=== PATIENT | male | born 1990 | race Caucasian/White ===

== ENCOUNTER → 2018-06-28 | Outpatient (CLI) | payer BC ==
[2018-06-28 18:34] LABS: BASOPHIL % 0.2 % (0.0-0.2); EOSINOPHIL # 0.2 10^3/uL (0.0-0.2); EOSINOPHIL % 2.4 % (0.0-5.0); LYMPHOCYTES # 2.3 10^3/uL (1.0-4.8); LYMPHOCYTES % 27.8 % (24.0-44.0); MEAN CELL HGB 29.1 pg (26-34); MEAN CELL HGB CONCENTRATION 32.3 g/dL (33-37); MEAN CORP VOLUME 90.1 fL (78-100); MEAN PLATELET VOLUME 9.4 fL (7.8-11.0); MONOCYTES # 1.2 10^3/uL (0.3-0.8); MONOCYTES % 14.2 % (5.0-12.0); NEUTROPHIL # 4.6 10^3/uL (1.8-7.7); NEUTROPHILS % 54.9 % (41.0-85.0); WHITE BLOOD CELL 8.3 10^3/uL (4.5-11.0)
[2018-06-28 19:10] LABS: CALCIUM 9.8 mg/dL (8.4-10.5); CARBON DIOXIDE 25.9 mmol/L (20.0-32)
== END | disposition home or self-care (01) ==
LOC: LAB 18:01
PROVIDERS: ATTEND Pediatrics
DX: R31.9 Hematuria, unspecified (principal); R53.81 Other malaise; R53.83 Other fatigue
CPT/HCPCS: 36415; 80053; 82550; 85025; 85651; 86038; 86060; 86140; 86431

== ENCOUNTER → 2018-06-30 | Outpatient (CLI) | payer OTHER ==
[~2018-06-30] MED LIST: DOXY100C2 PO; METH-3 PO
--- NOTE | 2018-06-30 13:16 | DIREP ---
PROCEDURE:US KIDNEYS-BILAT COMPARISON:None. INDICATIONS:GROSS HEMATURIA TECHNIQUE:Ultrasound examination was performed of the kidneys and bladder. FINDINGS: RIGHT KIDNEY:10.1 x 5.4 x 5.9 cm. Cortex: 1.8 cm LEFT KIDNEY: 11.0 x 5.4 x 5.6 cm. Cortex: 1.6 cm BLADDER (pre-void):7.4 x 8.0 x 6.7 cm. Volume 277.3 ml BLADDER (post-void): 4.2 x 3.4 x 4.3 cm. Volume 31.5 ml MICTURATED VOLUME: 245.8 ml RIGHT KIDNEY: Normal. No hydronephrosis. LEFT KIDNEY: Normal. No hydronephrosis. BLADDER:Normal. OTHER:Negative. CONCLUSION: 1. Normal renal sonography. No definite abnormality is identified to account for patient's hematuria. CT scan of the abdomen and pelvis could be of aid in further evaluation. Dictated by: PANCHITO Physician on 06/30/2018 at 12:12 PM ac
== END | disposition home or self-care (01) ==
LOC: RAD 09:44
PROVIDERS: ATTEND Pediatrics
DX: R31.0 Gross hematuria (principal)
CPT/HCPCS: 76770

== ENCOUNTER 2018-07-02 11:58 | Observation (INO) | payer OTHER ==
[~2018-07-02] VITALS: Ht 185.4 cm; Wt 120.2 kg
[2018-07-02] MEDS ORDERED: NS 1000ML 1,000 ML IV ONE (12:34)
[2018-07-02] MEDS ORDERED: NS 1000ML 1,000 ML ONE (12:36)
[2018-07-02] MEDS ORDERED: ATIVAN ONE (12:37)
[2018-07-02] MEDS ORDERED: EMLA CREAM TP ONE (12:52)
[2018-07-02] MEDS ORDERED: ATIVAN PO ONE (13:00)
--- NOTE | 2018-07-02 13:15 | NUR ---
PATIENT TRANSPORTED TO RADIOLOGY FOR CT VIA WHEELCHAIR. Addendum: 07/02/18 at 1459 by Isaura Bhat RN RN CORRECT TIME 1330
--- NOTE | 2018-07-02 13:20 | NUR ---
ARRIVED TO MED SURG FLOOR AMBULATORY. ADMISSION ASSESSMENT COMPLETED. PATIENT ANXIOUS ABOUT GETTING STUCK WITH NEEDLES FOR IV AND BLOOD DRAW. ADMINISTERED ATIVAN PO. USED LIDOCAINE CREAM. STARTED 20G IV TO LEFT HAND. AT BEDSIDE COMFORTING PATIENT. LAB AT BEDSIDE FOR BLOOD DRAW.
[2018-07-02 13:23] LABS: BILIRUBIN,URINE NEGATIVE (NEGATIVE); UROBILINOGEN,URINE NORMAL (NEGATIVE)
[2018-07-02 13:30] VITALS: BP 134/81
[2018-07-02] MEDS ORDERED: TORADOL IV STA (13:48)
[2018-07-02 14:34] LABS: APPEARANCE,URINE SLIGHTLY HAZY (CLEAR); UA COLOR YELLOW (YELLOW)
[2018-07-02 14:36] LABS: YEAST,URINE RARE
[2018-07-02] MEDS ORDERED: ULTRAM PO STA (16:09)
[2018-07-02] MEDS ORDERED: ULTRAM ONE (16:16)
[2018-07-02 16:40] VITALS: BP 150/75
--- NOTE | 2018-07-02 17:27 | DIREP ---
PROCEDURE:CT ABDOMEN/PELVIS W + W/O CONTRAST COMPARISON:None. INDICATIONS:gross hematuria with flank pain TECHNIQUE:Axial images were created through the abdomen and pelvis with and without intravenous contrast material. No oral contrast was administered. Sagittal and coronal reconstructions were performed from source images. FINDINGS: LUNG BASES:Normal. No visible pulmonary or pleural disease. LIVER:Normal. No significant liver lesions are identified. BILIARY:Normal. No visible dilatation or calcification. PANCREAS:Normal. No lesion, fluid collection, ductal dilatation, or atrophy. SPLEEN:Normal. No enlargement or focal lesion. ADRENALS:Normal. No mass or enlargement. URINARY TRACT:Normal. No focal lesions or hydronephrosis. No renal calculi. AORTA/VASCULAR:Normal. No aneurysm. RETROPERITONEUM:Normal. No mass or adenopathy. BOWEL/MESENTERY: Evaluation of the bowel is limited by lack of oral contrast, but there is no apparent obstruction or mass. The appendix is well visualized and normal in diameter without surrounding inflammation. ABDOMINAL WALL:Normal. No mass or hernia. PELVIC ORGANS:Normal. No visible mass. Pelvic organs appropriate for patient age. BONES:Normal for age. No bony lesion or acute fracture. OTHER:Negative. CONCLUSION: 1. No renal stone or hydronephrosis. No solid or cystic renal lesion Dictated by: Theron Singh Jr. on 07/02/2018 at 05:22 PM
[2018-07-02] MEDS ORDERED: ROBAXIN PO STA (17:38)
[2018-07-02] MEDS ORDERED: ROBAXIN ONE (17:46)
[2018-07-02] MEDS ORDERED: HNS 1000ML/KCL 20MEQ 1,000 ML ONE (17:46)
[2018-07-02] MEDS ORDERED: HNS 1000ML/KCL 20MEQ 1,000 ML IV SCH (18:00)
[2018-07-02] MEDS ORDERED: METH-3 PO (18:55)
[2018-07-02] MEDS ORDERED: DOXY100C2 PO (18:55)
--- NOTE | 2018-07-02 19:02 | NUR ---
REPORT GIVEN TO ONCOMING SHIFT. RELINQUISHED CARE.
[2018-07-02 19:28] VITALS: BP 150/88
--- NOTE | 2018-07-02 19:30 | HPH ---
ADMIT DATE: 07/02/2018 The patient is being placed under observation to Med/Surg. PRIMARY CARE PHYSICIAN: Kathrine Shabazz MD ADMITTING DIAGNOSES: Gross hematuria with flank pain and urgency with back pain. CHIEF COMPLAINT: "Pain and problems with my kidneys." HISTORY OF PRESENT ILLNESS: The patient is a 28-year-old gentleman who reports having had some URI symptoms a couple of weeks ago and had been doing fine and then he started to have increasing mid to lower back pain with dark urine. He denies any fevers. No night sweats. No chills. No weight loss. No appetite problems. He states that when he moves around, he has a lot of pain in his back. 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 His CBC was normal. Chemistry panel looked okay, but due to the fact that he was having still significant pains in his back and dark urine, I went ahead and put him in the hospital. PAST MEDICAL HISTORY: None. PAST SURGICAL HISTORY: Noncontributory. FAMILY HISTORY: Noncontributory. MEDICATIONS: None. SOCIAL HISTORY: He does not smoke. No illicit drugs, no alcohol reported. ALLERGIES: MORPHINE and CODEINE. PHYSICAL EXAMINATION: VITAL SIGNS: Initial temperature was 98.6, pulse rate was 85, respirations 18, blood pressure was 134/80 and O2 sats of 95%. My physical exam is as follows: CONSTITUTIONAL: He is in no acute distress, awake, alert, oriented x 4. HEENT: Oropharynx is clear. NECK: Supple. No JVD. No bruits. HEART: S1, S2 audible, not tachycardic. LUNGS: Clear bilaterally. ABDOMEN: Good bowel sounds, soft abdomen. No rebound. No guarding. No masses. EXTREMITIES: No edema. No petechia. No purpura. IMAGING STUDIES: I reviewed his scan. PLAN: Since he had a normal renal ultrasound done 2 days ago, so my plan is to get a CAT scan on his abdomen and pelvis and treat his pain, repeat a UA to see if his gross hematuria is improving and follow him clinically. Kathrine Shabazz MD DR: TONIA/lisy JOB# [id number]
[2018-07-02 20:01] VITALS: BP 150/88
--- NOTE | 2018-07-02 20:08 | DSH ---
DATE OF DISCHARGE: 07/02/2018 ADMITTING DIAGNOSES: Gross hematuria with flank pain and urgency with back pain. DISCHARGE DIAGNOSES: Hematuria with flank pain and back pain, suspect urinary tract infection. HOSPITAL COURSE: The patient is a 28-year-old gentleman who came to my office initially for gross hematuria. He had 3+ blood. Labs looked okay and had some send send-out labs pending. However, he continued to have significant pain and urgency. I put him in the hospital. Ultrasound of kidneys was normal. CT scan of the abdomen and pelvis with and without IV contrast was normal. UA did show some few bacteria with positive blood and he was having urgency in the hospital. I did give him a fluid bolus and I gave him some tramadol with some Robaxin and he states that Robaxin helped him a lot. I do suspect there are some muscle spasms around his back that is causing him to have back pain as well, but at this time he feels better. I talked with him and while we wait for the urine culture to come back, I will go ahead and start him on doxycycline twice a day for 7 days and some Robaxin to take while he is at home. He is to resume his regular diet and activity level and follow up with me next week. My office staff will make the appointment to go over the send send-out labs and the urine culture. Kathrine Shabazz MD DR: TONIA/lisy JOB# [id number]
[2018-07-04 14:29] LABS: COMPLEMENT C4 30 mg/dL (14-44)
== END 2018-07-02 19:50 | disposition home or self-care (01) ==
LOC: MS 12:20 → INTOOBSV 12:20
PROVIDERS: ADMIT Pediatrics; ATTEND Pediatrics
DX: R31.0 Gross hematuria (principal); R10.9 Unspecified abdominal pain; M54.5 Low back pain
CPT/HCPCS: 36415; 74178; 81000; 86160 ×2; 86162; 87086; 96374; G0378 ×7; J1885; J7030 ×2; Q9965